=== PATIENT | female | born 1975 | race American Indian/Alaskan Native ===

== ENCOUNTER 2018-02-25 14:42 | Outpatient (CLI) | payer BC ==
--- NOTE | 2018-02-26 15:45 | Magnetic Resonance Report ---
BILATERAL BREAST MRI WITHOUT AND WITH CONTRAST: 02/25/18 14:42:00 CLINICAL: Family history of breast cancer. High risk patient with a 26.5% lifetime risk. Abnormal mammogram with right asymmetry and architectural distortion on a mammogram performed at [facility] [employer]. COMPARISON:07/16/17 mammogram from [facility] [employer]. TECHNIQUE: Axial 1.0-mm T1 without, axial high resolution 2.0-mm T2 and axial 1.0-mm dynamic Vibrant high-resolution postcontrast T1 fat saturation sequences on a 1.5 Soha magnet. The examination was performed with an 8 channel dedicated [place] breast coil. Post processing with CAD and subtraction was performed on an [employer] workstation. 20 cc of Multihance was injected without incident and for the contrast portion of the exam. Consent was obtained prior to the administration of the contrast. FINDINGS: Right: Marked background parenchymal enhancement. No mass or suspicious enhancement. No abnormal enhancement associated with a surgical scar and architectural distortion at 9 o'clock. This correlates with the mammographic asymmetry and architectural distortion. There is mild skin thickening associated with the lateral surgical scar. A few scattered benign cysts. No suspicious right axillary or right internal mammary lymph nodes. Left: Marked background parenchymal enhancement. No mass or suspicious enhancement. A few scattered benign cysts. No suspicious left axillary or left internal mammary lymph nodes. IMPRESSION: Benign postsurgical scar and bilateral benign cysts. No mass or suspicious enhancement. Recommend routine mammographic screening alternating with routine screening MRI. BI-RADS 2 - - Benign
== END 2018-02-25 14:43 | disposition home or self-care (01) ==
LOC: SPVIMAG 14:42
PROVIDERS: ATTEND Surgery
DX: N60.01 Solitary cyst of right breast (principal); Z80.3 Family history of malignant neoplasm of breast
CPT/HCPCS: A9577; C8908; 77059

== ENCOUNTER 2018-07-29 09:35 | Outpatient (CLI) | payer BC ==
--- NOTE | 2018-07-29 10:13 | Mammography Report ---
BILATERAL DIGITAL SCREENING MAMMOGRAM with CAD: 07/29/18 09:35:00 CLINICAL: Routine screening. COMPARISON:07/16/17 [facility] [employer] FINDINGS: The breasts are heterogeneously dense, which may obscure small masses. No mass, architectural distortion or suspicious calcifications. IMPRESSION: No mammographic evidence of malignancy. BI-RADS CATEGORY: 1 - - Negative RECOMMENDATION: Routine mammographic screening in one year. COMMENT: Patient follow-up letters are generated by our [employer] application.
== END 2018-07-29 09:36 | disposition home or self-care (01) ==
LOC: SPVWC 09:35
PROVIDERS: ATTEND Surgery
DX: Z12.31 Encounter for screening mammogram for malignant neoplasm of breast (principal)
CPT/HCPCS: 77067